=== PATIENT | male | born 1970 | race Caucasian/White ===

== ENCOUNTER 2018-01-02 08:49 | Emergency (ER) | payer MEDICAID, SELFPAY ==
[2018-01-02 09:13] VITALS: BP 126/84; PULSE 68; RESP 68; TEMP 37.1; O2SAT 97; BMI 39.4
--- NOTE | 2018-01-02 09:25 | XR_ITS ---
XR shoulder RT min 2V Ordering Physician: Pao Baker Patient Age: 47 years: Male HISTORY: ITS.REASON: pain Pain all weekend no trauma pain right shoulder. TECHNIQUE: 3 views of right shoulder. COMPARISON : FINDINGS No acute fracture nor dislocation right shoulder. However there are degenerative glenohumeral joint, most evident at the inferior glenohumeral joint. There appear to be some hypertrophic ridging features along the inferior margin of both glenoid and humeral head with some subchondral cystic changes likely evident on both sides of this glenohumeral joint reflecting degenerative features as well.. Mild AC joint hypertrophy and arthropathy. Scapula is intact Right lung apex is clear. IMPRESSION: Degenerative changes right shoulder most evident inferior glenohumeral joint. AC joint arthropathy, mild hypertrophy. . No fracture
--- NOTE | 2018-01-02 09:32 | HMH.EDUTC ---
[facility] [place] Disposition Clinical Impression: Rib pain on right side Disposition: Home, Self-Care Condition on Discharge: Good Instructions: DI for Chronic Pain -- Adult Additional Instructions: Take medication as prescribed FOllow up with family doctor Return if needed If pain worsens or you begin to have trouble breathing or crushing stabbing like pain go straight to ER If pain persist follow up with family doctor in 1-2 days Prescriptions: Ibuprofen [Ibuprofen 800mg Tab] 800 mg PO Q8HP PRN #20 tab PRN Reason: Moderate Pain Referrals: Roel Chew MD [Primary Care Provider] - As needed (If pain persists follow up with Dr Chew in 1-2 days) Time of Disposition: 10:24 Medical Decision Making Vital Signs: 01/02/18 09:13 Temperature 98.8 F Temperature Source Temporal Artery Scan Pulse Rate [Right] 68 Respiratory Rate 68 H Blood Pressure [Right Arm] 126/84 Blood Pressure Mean [Right Arm] 98 Blood Pressure Source [Right Arm] Automatic Cuff Blood Pressure Position [Right Arm] Sitting 02 Sat by Pulse Oximetry 97 Oxygen Delivery Method Room Air Orders (Tests/Meds): ORDERS Category Date Time Status Shoulder XR right miminum 2 views [XR shoulder RT min Exams 01/02/18 09:25 Taken 2V] Stat XR ribs RT min 3V w CXR1V Stat Exams 01/02/18 09:35 Taken - Radiology Data #1 Image(s): Shoulder Image Reviewed: Yes I reviewed the patient's radiology image w/the ED provider Preliminary Findings: Normal/NAD, No Fracture Seen #2 Image(s): Other (Rib series) Image Reviewed: Yes I reviewed the patient's radiology image w/the ED provider Preliminary Findings: Normal/NAD, No Fracture Seen - Brett Inquiry Pt receiving controlled substance: No Brett was queried for this patient: No - Reevaluation(s) Time: 10:06 Reevaluation #1: Requested to have Radiologist read xray however Radiologist in procedure so consulted with ER physician Dr Guaman to veiw xray awaiting Dr Guaman to veiw xray Time: 10:17 Reevaluation #3: Discussed xrays with Dr Guaman and agreed no acute finding [facility] [place] HPI - General Stated complaint: pain under right shoulder,hurts through to chest Mode of Arrival: Ambulatory Source of Information: Patient Limitations: No Limitations Description of Symptoms (Recalled from Triage Doc. by RN): PAIN RIGHT SHOULDER BLADE AREA X2 WKS, DENIES INJURY HEENT Symptoms (Recalled from RN notes): No Resp Symptoms (Recalled from RN notes): No Skin Symptoms (Recalled from RN notes): No MS Symptoms (Recalled from RN notes): Yes Functional Status (Recalled from RN notes): N - History of Present Illness Provider Complaint: Patient complains of pain in his right shoulder blade and rib area that has been going on about 2 weeks State that when he moves the pain worsens State that he doesn't recall doing anything to cause injury State that movement makes pain worse and it radiates down around rib area - Related Data Home Medications Medication Instructions Recorded Confirmed Pantoprazole Sodium [Pantoprazole 40 mg PO DAILY 01/02/18 01/02/18 20mg Tab] Previous Rx's Medication Instructions Recorded Ibuprofen [Ibuprofen 800mg Tab] 800 mg PO Q8HP PRN #20 tab 01/02/18 Allergies Allergy/AdvReac Type Severity Reaction Status Date / Time No Known Allergies Allergy Verified 01/02/18 09:17 - Worker's Comp Is this a Worker's Comp case?: No [facility] History I have reviewed the patient's past medical history: Yes - Social History Smoking Status: Never smoker Alcohol Intake: never - Psychiatric History Expresses thoughts of harming self/others: None Suicide Plan Description: No Plan ROS Obtained: Yes All systems reviewed & no additional complaints Physical Exam - General General appearance: alert, in no apparent distress - Chest Chest inspection: Present: normal inspection, symmetric chest wall rise. Absent: tenderness - Respiratory Respiratory exam: Pre
--- NOTE | 2018-01-02 09:35 | XR_ITS ---
XR ribs RT min 3V w CXR1V Ordering Physician: Pao Baker Patient Age: 47 years: Male HISTORY: ITS.REASON: rib pain shoulder pain TECHNIQUE: Oblique views right ribs along with AP chest above and below diaphragm COMPARISON :Previous chest films 2014 FINDINGS Right ribs are intact with no fracture nor lesion evident. The lungs are well expanded and clear with no active disease. Heart ar and mediastinal structures satisfactory. Mild degenerative changes with stable anterior marginal osteophytes at the T-spine The degenerative arthritic changes at the right glenohumeral joint are again nicely seen on these oblique studies. There is narrowing at the glenohumeral joint inferiorly with 20 mm subchondral cystic changes most evident at the inferior margin of the glenoid. IMPRESSION: Right ribs intact no fracture. Narrowing and arthritic changes developing at the inferior glenohumeral joint of right shoulder, again noted on these images
--- NOTE | 2018-01-02 09:35 | ED_ITS ---
[facility] [place] Disposition Clinical Impression: Rib pain on right side Disposition: Home, Self-Care Condition on Discharge: Good Instructions: DI for Chronic Pain -- Adult Additional Instructions: Take medication as prescribed FOllow up with family doctor Return if needed If pain worsens or you begin to have trouble breathing or crushing stabbing like pain go straight to ER If pain persist follow up with family doctor in 1-2 days Prescriptions: Ibuprofen [Ibuprofen 800mg Tab] 800 mg PO Q8HP PRN #20 tab PRN Reason: Moderate Pain Referrals: Roel Chew MD [Primary Care Provider] - As needed (If pain persists follow up with Dr Chew in 1-2 days) Time of Disposition: 10:24 Medical Decision Making Vital Signs: 01/02/18 09:13 Temperature 98.8 F Temperature Source Temporal Artery Scan Pulse Rate [Right] 68 Respiratory Rate 68 H Blood Pressure [Right Arm] 126/84 Blood Pressure Mean [Right Arm] 98 Blood Pressure Source [Right Arm] Automatic Cuff Blood Pressure Position [Right Arm] Sitting 02 Sat by Pulse Oximetry 97 Oxygen Delivery Method Room Air Orders (Tests/Meds): ORDERS Category Date Time Status Shoulder XR right miminum 2 views [XR shoulder RT min Exams 01/02/18 09:25 Taken 2V] Stat XR ribs RT min 3V w CXR1V Stat Exams 01/02/18 09:35 Taken - Radiology Data #1 Image(s): Shoulder Image Reviewed: Yes I reviewed the patient's radiology image w/the ED provider Preliminary Findings: Normal/NAD, No Fracture Seen #2 Image(s): Other (Rib series) Image Reviewed: Yes I reviewed the patient's radiology image w/the ED provider Preliminary Findings: Normal/NAD, No Fracture Seen - Brett Inquiry Pt receiving controlled substance: No Brett was queried for this patient: No - Reevaluation(s) Time: 10:06 Reevaluation #1: Requested to have Radiologist read xray however Radiologist in procedure so consulted with ER physician Dr uGaman to veiw xray awaiting Dr Guaman to veiw xray Time: 10:17 Reevaluation #3: Discussed xrays with Dr Guaman and agreed no acute finding [facility] [place] HPI - General Stated complaint: pain under right shoulder,hurts through to chest Mode of Arrival: Ambulatory Source of Information: Patient Limitations: No Limitations Description of Symptoms (Recalled from Triage Doc. by RN): PAIN RIGHT SHOULDER BLADE AREA X2 WKS, DENIES INJURY HEENT Symptoms (Recalled from RN notes): No Resp Symptoms (Recalled from RN notes): No Skin Symptoms (Recalled from RN notes): No MS Symptoms (Recalled from RN notes): Yes Functional Status (Recalled from RN notes): N - History of Present Illness Provider Complaint: Patient complains of pain in his right shoulder blade and rib area that has been going on about 2 weeks State that when he moves the pain worsens State that he doesn't recall doing anything to cause injury State that movement makes pain worse and it radiates down around rib area - Related Data Home Medications Medication Instructions Recorded Confirmed Pantoprazole Sodium [Pantoprazole 40 mg PO DAILY 01/02/18 01/02/18 20mg Tab] Previous Rx's Medication Instructions Recorded Ibuprofen [Ibuprofen 800mg Tab] 800 mg PO Q8HP PRN #20 tab 01/02/18 Allergies Allergy/AdvReac Type Severity Reaction Status Date / Time
[2018-01-02 10:32] VITALS: BP 122/87; PULSE 72; RESP 18; TEMP 37.1
== END 2018-01-02 10:46 | disposition home or self-care (01) ==
PROVIDERS: Emergency Provider Nurse Practitioner; Family Provider Family Medicine; PCP Family Medicine
DX: R07.81 Pleurodynia (principal)
CPT/HCPCS: 71101; 73030; 96372; 99202